=== PATIENT | female | born 1965 | race Caucasian/White ===

== ENCOUNTER 2016-10-22 16:51 | Emergency (ER) | payer BC, OTHER ==
[~2016-10-22] VITALS: Ht 165.1 cm; Wt 89.5 kg
[~2016-10-22 16:51] MED LIST: CETI10TA84 PO; CHOL100010 PO; IBUP-1450 PO; LOSARTAN/HCT PO; LPT10 PO; MULT-506 PO; OMEG10007 PO
[2016-10-22 17:00] VITALS: TEMP 36.7; Ht 165.1 cm; Wt 89.5 kg
[2016-10-22] MEDS ORDERED: ONDANSETRON INJ 2 MG/ML 2 ML VIAL IV STA ×2 (18:53→19:40)
[2016-10-22] MEDS ORDERED: HYDROmorphone INJ 1 MG/ML SYR IV PRN (19:00)
[2016-10-22 19:35] LABS: BASO % 0.3 %; BASO ABS # 0.02 K/uL (0-0.2); COMPLETE YES; HEMATOCRIT 34.7 % (37-47); IG% 0.2 %; LYMPH % 33.2 %; LYMPH ABS # 1.97 K/uL (1.2-3.4); MEAN CELL VOLUME 80.5 fL (80-100); MEAN CORPUSCULAR HEMOGLOBIN 29.2 pg (25-34); MEAN CORPUSCULAR HGB CONC 36.3 g/dl (32-36); MEAN PLATELET VOLUME 9.5 fL (7.4-10.4); MONO % 5.7 %; NEUT % 58.6 %; PLATELET COUNT 248 K/uL (130-400); RED BLOOD COUNT 4.31 M/uL (4.2-5.4); WHITE BLOOD COUNT 5.94 K/uL (4.8-10.8)
[2016-10-22] MEDS ORDERED: CHOL2000 PO (19:43)
--- NOTE | 2016-10-22 19:55 | DIAGNOSTIC IMAGING REPORT ---
CHEST ONE VIEW PORTABLE HISTORY: Atypical CHEST PAIN COMPARISON: None. FINDINGS: The lungs are clear. Cardiac silhouette is normal in size. No pleural effusions. No pneumothorax. IMPRESSION: No acute process. Electronically signed by: Leon Fernandez M.D. 10/22/2016 7:53 PM Dictated Date/Time: 10/22/2016 7:52 PM
[2016-10-22 19:57] LABS: ALT/SGPT 77 U/L (12-78); AST/SGOT 43 U/L (15-37); BLOOD UREA NITROGEN 15 mg/dl (7-18); BUN/CREATININE RATIO 19.6 (10-20); CARBON DIOXIDE 29 mmol/L (21-32); CHLORIDE 104 mmol/L (98-107); CREATININE 0.78 mg/dl (0.60-1.20); GLUCOSE 89 mg/dl (70-99); POTASSIUM 3.2 mmol/L (3.5-5.1); SODIUM 141 mmol/L (136-145)
[2016-10-22 20:00] LABS: ALKALINE PHOSPHATASE 51 U/L (45-117); C-REACTIVE PROTEIN 0.58 mg/dl (0-0.29); CKMB/CK RATIO 1.1 (0-3.0)
[2016-10-22] MEDS ORDERED: METOCLOPRAMIDE HCL INJ 5 MG/ML 2 ML VIAL IV STA (20:06)
[2016-10-22] MEDS ORDERED: DiphenhydrAMINE HCL 50 MG/ML VIAL IV STA (20:06)
[2016-10-22] MEDS ORDERED: OPTIRAY 320 IV PRN (20:15)
[2016-10-22 20:48] VITALS: O2SAT 88
--- NOTE | 2016-10-22 20:57 | DIAGNOSTIC IMAGING REPORT ---
CHEST CTA for AORTIC DISSECTION CT DOSE: 646.56 mGy.cm HISTORY: Back and chest pain. TECHNIQUE: Multiaxial CT images of the chest were performed both before and after the intravenous administration of contrast to evaluate the aorta. Maximal intensity projection images were also obtained. COMPARISON STUDY: Chest CTA 12/07/2012. FINDINGS: Normal caliber thoracic aorta with no evidence for dissection. No pleural or pericardial effusions. Small right pericardial lymph node has slightly increased in size. This measures 7 mm in short axis diameter. Heterogeneous opacification of the liver remains unchanged. Cholecystectomy. The central pulmonary arteries are patent. No mediastinal or hilar lymphadenopathy. The adrenal glands and spleen are unremarkable. No fractures within the visualized osseous structures. No pneumothorax. Mild dependent changes seen within the lungs posteriorly. No focal lung consolidations to suggest pneumonia. IMPRESSION: 1. No evidence for an aortic dissection. 2. Small right pericardial lymph node is slight increase in size. However, this remains subcentimeter in short diameter. 3. No change in the heterogeneous opacification of the liver. Recommend correlation for LFTs to exclude an underlying hepatic pathology. Electronically signed by: Leon Fernandez M.D. 10/22/2016 8:54 PM Dictated Date/Time: 10/22/2016 8:49 PM
[2016-10-22] MEDS ORDERED: ONDANSETRON HOME PACK 4MG OD TAB PO ONE (21:30)
[2016-10-22] MEDS ORDERED: OXYCODONE IR HOME PACK PO ONE (21:30)
[2016-10-22] MEDS ORDERED: OXYC1TAB3 PO (21:31)
[2016-10-22 21:50] VITALS: BP 112/69; PULSE 76; O2SAT 95
--- NOTE | 2016-10-23 00:29 | EMERGENCY ROOM VISIT NOTE ---
History Report prepared by Ladiibe: Lee Ann Lyons Under the Supervision of: Dr. David Phoenix M.D. First contact with patient: 18:36 Chief Complaint: RIB PAIN Stated Complaint: BACK/RIB PAIN History of Present Illness The patient is a 51 year old female who presents to the Emergency Room with complaints of worsening back and rib pain for the past 1 week. She rates her current pain as a 10/10 and states the pain is worse on her left side and radiates to her left breast. She describes her pain as feeling like "a knife stabbing me". She denies any known injury but admits she was lifting heavy boxes at her Mother's house approximately 1 week ago. She notes breathing and laying down worsen her pain and states "I can hardly sleep now". She denies any recent travel or long car rides. The patient also denies LOC, headache, fevers, chills, diaphoresis, visual changes, neck pain, chest pain, breathing difficulties, nausea, vomiting, abdominal pain, melena, hematochezia, urinary symptoms, numbness, weakness, lymphadenopathy, rash, pain or swelling in her legs or other complaints. Source of History: patient Onset: 1 week [employer]IDGE [employer] Position: back Symptom Intensity: 10/10 Quality: stabbing Timing: worsening Modifying Factors (Worsening): breathing, other (laying down) Review of Systems See HPI for pertinent positives and negatives. A total of ten systems were reviewed and were otherwise negative. Past Medical & Surgical Medical Problems: (1) Benign hypertension (2) Bicuspid aortic valve (3) Hyperlipidemia Family History Patient reports no known family medical history. Social History Smoking Status: Never Smoker Alcohol Use: occasionally Drug Use: none Marital Status: Housing Status: lives with family Occupation Status: employed Current/Historical Medications Scheduled Atorvastatin (Atorvastatin Calcium), 10 MG PO Q2D Cetirizine (Zyrtec), 10 MG PO LUNCH Cholecalciferol (Vitamin D3), 1 CAP PO DAILY Fish Oil ([place]-3), 1 CAP PO LUNCH Ibuprofen (Motrin), 600 MG PO Q6H Multivitamin (Multivitamin), 1 TAB PO LUNCH [Losartan/Hct], 1 TAB PO LUNCH Scheduled PRN Oxycodone Ir (Roxicodone Ir), 1-2 TAB PO Q4H PRN for Pain Allergies Coded Allergies: Morphine (Verified Allergy, Unknown, BRADYCARDIA, 10/22/16) Physical Exam Vital Signs Date Time Temp Pulse Resp B/P Pulse Ox O2 Delivery O2 Flow Rate FiO2 10/22/16 21:50 76 16 112/69 95 10/22/16 20:48 88 Nasal Cannula 2.0 10/22/16 19:50 59 16 114/66 98 Room Air 10/22/16 19:44 63 16 95/50 97 Room Air 10/22/16 19:21 99 Room Air 10/22/16 19:20 71 10/22/16 19:16 Room Air 10/22/16 19:09 69 16 133/80 96 Room Air 10/22/16 17:00 36.7 80 18 136/90 97 Room Air Physical Exam GENERAL: Awake, alert, well appearing, no distress HENT: Normocephalic, atraumatic. TM's normal. Oropharynx unremarkable. EYES: PERRL. EOMI. Normal conjunctiva. Sclera non-icteric. NECK: Supple. No nuchal rigidity. FROM. No JVD or bruit. RESPIRATORY: CTA CARDIAC: RRR. No murmur. ABDOMEN: Soft, non distended. No tenderness to palpation. No rebound or guarding. No masses. RECTAL: Deferred. MUSCULOSKELETAL: Unremarkable. No edema. No discoloration. Gross motor strength symmetric. NEURO: Cranial nerves 2-12 grossly intact. Normal sensorium. No sensory or motor deficits noted. Gait normal. Speech normal. No pronator drift. Negative rhomberg. SKIN: No rash or jaundice noted. LYMPH: No adenopathy. Medical Decision & Procedures ER Provider Diagnostic Interpretation: This CT scan was reviewed and interpreted by the radiologist and reviewed by myself. CHEST CTA for AORTIC DISSECTION CT DOSE: 646.56 mGy.cm HISTORY: Back and chest pain. TECHNIQUE: Multiaxial CT images of the chest were performed both before and after the intravenous administration of contrast to evaluate the aorta. Maximal intensity projection images were also obtained. COMPARISON STUDY: Chest CTA 12/07/2012. FINDINGS: Normal caliber thoracic aorta with no evidence for dissection. No pleural or pericardial effusions. Small right pericardial lymph node has slightly increased in size. This measures 7 mm in short axis diameter. Heterogeneous opacification of the liver remains unchanged. Cholecystectomy. The central pulmonary arteries are patent. No mediastinal or hilar lymphadenopathy. The adrenal glands and spleen are unremarkable. No fractures within the visualized osseous structures. No pneumothorax. Mild dependent changes seen within the lungs posteriorly. No focal lung consolidations to suggest pneumonia. IMPRESSION: 1. No evidence for an aortic dissection. 2. Small right pericardial lymph node is slight increase in size. However, this remains subcentimeter in short diameter. 3. No change in the heterogeneous opacification of the liver. Recommend correlation for LFTs to exclude an underlying hepatic pathology. Electronically signed by: Leon Fernandez M.D. 10/22/2016 8:54 PM This X-Ray was reviewed and interpreted by myself and the radiologist. CHEST ONE VIEW PORTABLE HISTORY: Atypical CHEST PAIN COMPARISON: None. FINDINGS: The lungs are clear. Cardiac silhouette is normal in size. No pleural effusions. No pneumothorax. IMPRESSION: No acute process. Electronically signed by: Leon Fernandez M.D. 10/22/2016 7:53 PM Laboratory Results 10/22/16 19:15 Red Blood Count 4.31, Mean Corpuscular Volume 80.5, Mean Corpuscular Hemoglobin 29.2, Mean Corpuscular Hemoglobin Concent 36.3, Mean Platelet Volume 9.5, Neutrophils (%) (Auto) 58.6, Lymphocytes (%) (Auto) 33.2, Monocytes (%) (Auto) 5.7, Eosinophils (%) (Auto) 2.0, Basophils (%) (Auto) 0.3, Neutrophils # (Auto) 3.48, Lymphocytes # (Auto) 1.97, Monocytes # (Auto) 0.34, Eosinophils # (Auto) 0.12, Basophils # (Auto) 0.02 10/22/16 19:15 Test 10/22/16 19:15 10/22/16 19:24 White Blood Count 5.94 K/uL (4.8-10.8) Red Blood Count 4.31 M/uL (4.2-5.4) Hemoglobin 12.6 g/dL (12.0-16.0) Hematocrit 34.7 % (37-47) Mean Corpuscular Volume 80.5 fL (80-100) Mean Corpuscular Hemoglobin 29.2 pg (25-34) Mean Corpuscular Hemoglobin Concent 36.3 g/dl (32-36) Platelet Count 248 K/uL (130-400) Mean Platelet Volume 9.5 fL (7.4-10.4) Neutrophils (%) (Auto) 58.6 % Lymphocytes (%) (Auto) 33.2 % Monocytes (%) (Auto) 5.7 % Eosinophils (%) (Auto) 2.0 % Basophils (%) (Auto) 0.3 % Neutrophils # (Auto) 3.48 K/uL (1.4-6.5) Lymphocytes # (Auto) 1.97 K/uL (1.2-3.4) Monocytes # (Auto) 0.34 K/uL (0.11-0.59) Eosinophils # (Auto) 0.12 K/uL (0-0.5) Basophils # (Auto) 0.02 K/uL (0-0.2) RDW Standard Deviation 37.3 fL (36.4-46.3) RDW Coefficient of Variation 12.7 % (11.5-14.5) Immature Granulocyte % (Auto) 0.2 % Immature Granulocyte # (Auto) 0.01 K/uL (0.00-0.02) Erythrocyte Sedimentation Rate 13 mm/hr (0-21) Anion Gap 8.0 mmol/L (3-11) Est Creatinine Clear Calc Drug Dose 93.2 ml/min Estimated GFR () 101.3 Estimated GFR (Non- 87.4 BUN/Creatinine Ratio 19.6 (10-20) Calcium Level 9.0 mg/dl (8.5-10.1) Total Bilirubin 0.4 mg/dl (0.2-1) Direct Bilirubin 0.1 mg/dl (0-0.2) Aspartate Amino Transf (AST/SGOT) 43 U/L (15-37) Alanine Aminotransferase (ALT/SGPT) 77 U/L (12-78) Alkaline Phosphatase 51 U/L (45-117) Total Creatine Kinase 61 U/L (26-192) Creatine Kinase MB 0.7 ng/ml (0.5-3.6) Creatine Kinase MB Ratio 1.1 (0-3.0) Troponin I < 0.015 ng/ml (0-0.045) C-Reactive Protein 0.58 mg/dl (0-0.29) Total Protein 8.0 gm/dl (6.4-8.2) Albumin 3.7 gm/dl (3.4-5.0) Lipase 262 U/L (73-393) Bedside D-Dimer 249 ng/mlFEU (0-450) Bedside Troponin I 0.000 ng/ml (0-0.045) Laboratory results reviewed by me Medications Administered Medications (Trade) Dose Ordered Sig/Lucille Route Start Time Stop Time Status Last Admin Dose Admin Hydromorphone HCl (Dilaudid Inj) 1 mg Q15M PRN IV 10/22/16 19:00 10/22/16 22:24 DC 10/22/16 19:17 1 MG Ondansetron HCl (Zofran Inj) 4 mg NOW STAT IV 10/22/16 18:53 10/22/16 18:55 DC 10/22/16 19:17 4 MG Ondansetron HCl (Zofran Inj) 4 mg NOW STAT IV 10/22/16 19:40 10/22/16 19:41 DC 10/22/16 19:44 4 MG Metoclopramide HCl (Reglan Inj) 10 mg NOW STAT IV 10/22/16 20:06 10/22/16 20:07 DC 10/22/16 20:12 10 MG Diphenhydramine HCl (Benadryl Inj) 12.5 mg NOW STAT IV 10/22/16 20:06 10/22/16 20:07 DC 10/22/16 20:12 12.5 MG Oxycodone HCl (Roxicodone Immediate Rel 5MG Home Pack) 1 homepack UD ONCE PO 10/22/16 21:30 10/22/16 21:31 DC 10/22/16 21:47 1 HOMEPACK Ondansetron HCl (ZOFRAN ODT 4MG Home Pack) 1 homepack UD ONCE PO 10/22/16 21:30 10/22/16 21:31 DC 10/22/16 21:47 1 HOMEPACK ECG Indication: back/shoulder pain Rate (beats per minute): 73 Rhythm: normal sinus (normal sinus rhythm) Findings: no acute ischemic change, no ectopy ED Course 1850: The patient was evaluated in room B10. A complete history and physical exam was performed. 1852: Zofran 4 mg IV. 0: Dilaudid 1 mg IV. 0: Zofran 4 mg IV. 2006: Benadryl 12.5 mg IV, Reglan 10 mg IV. 2017: I reevaluated the patient. She is feeling well. 2117: I reevaluated the patient. She is feeling much better. I discussed her results and discharge instructions and she verbalized complete understanding and agreement. 2129: Zofran 4 mg 1 homepack PO, Oxycodone HCl 1 homepack PO. Medical Decision Triage Nursing notes reviewed. The patient's presentation and history were concerning for chest and back pain. Etiologies such as cardiac ischemia, aortic dissection, pulmonary embolism, pneumonia, pneumothorax, musculoskeletal, infections, gastrointestinal, as well as others were entertained. The patient was evaluated. She was uncomfortable. She was given Dilaudid and Zofran. She had some nausea and was given additional Zofran and Reglan. She felt better with this. Her pain was minimal. Her ECG was unremarkable. Cardiac markers were negative. CBC and chemistry panel were unremarkable. D- dimer was negative. Because of her history of a congenital bicuspid aortic valve she underwent CT dissection study. This was unremarkable. No other incidental sources of pain were noted. The patient thinks that she may have been doing a lot of lifting and musculoskeletal etiology is possible. I discussed conservative management with the patient. The patient and her felt comfortable. The patient was given a home pack of oxycodone and a small prescription for the same. If she has any issues at all she will come back to the emergency department. Patient will follow-up with her primary physician. By the evaluation outlined above other emergent etiologies such as those listed in the differential, as well as others, were deemed relatively unlikely. The patient was informed about the findings as listed above. All questions were answered and she was pleased with the treatment. Return instructions were outlined and the patient was discharged in stable condition. The patient was referred to her PCP for follow-up for a recheck of the current condition. The chart was completed utilizing [employer] Speech voice recognition software. Grammatical errors, random word insertions, pronoun errors, and incomplete sentences are an occasional consequence of this system due to software limitations, ambient noise, and hardware issues. Any formal questions or concerns about the content, text, or information contained within the body of this dictation should be directly addressed to the physician for clarification. [place] Drug Monitoring Program Search Results: patient reviewed within database, no issues identified Impression Primary Impression: Thoracic back pain Additional Impression: Left sided chest pain Scribe Attestation The scribe's documentation has been prepared under my direction and personally reviewed by me in its entirety. I confirm that the note above accurately reflects all work, treatment, procedures, and medical decision making performed by me. Departure Information Dispostion Home / Self-Care Prescriptions Oxycodone Ir (Roxicodone Ir) 5 Mg Tab 1-2 TAB PO Q4H Y for Pain, #10 TAB Prov: David Phoenix MD 10/22/16 Referrals Chad Donovan M.D. (PCP) Patient Instructions [facility] Additional Instructions BACK PAIN/CHEST PAIN INSTRUCTIONS: DO NOT drive, drink alcohol, operate machinery, or perform dangerous activities today. You were given medications in the ER that can affect your ability to safely function or operate a vehicle. Oxycodone (OxyIR) 5mg: Take 1-2 pills every four hours for breakthrough pain. Avoid alcohol, operating machinery or dangerous equipment, working on ladders or roofs, DRIVING, or situations where being under the influence may be dangerous. It is recommended to use an wvma-rxy-fjhrlin stool softener such as Colace, 100mg twice daily while taking this medication to avoid constipation. Ibuprofen(Motrin, Advil) may be used for fever or pain. Use 600mg every six hours as needed. Take with food. Avoid using more than 2400mg in a 24 hour period. Do not use 2400mg per day for more than three consecutive days without physician direction. Prolonged inappropriate use can lead to stomach upset or ulcers. This medication can be taken if you need to drive, work, or perform activities which may be dangerous when taking narcotic pain medication. (AND/OR) Acetaminophen(Tylenol) may be used for fever or pain. Use 1000mg every six hours as needed. Avoid using more than 4000mg in a 24 hour period. This medication can be taken if you need to drive, work, or perform activities which may be dangerous when taking narcotic pain medication. Zofran 4 mg oral dissolving tablets: take one tablet and allow it to melt in your mouth every 4 hours as needed for nausea. Rest and avoid heavy lifting until your symptoms resolve and then gradually return to full activity. A good rule of thumb is if it hurts your back to perform a certain activity, then it should be avoided until you are healthy again. A heating pad, warm compresses, or a hot shower may help with tight muscles and can be done several times a day as needed. Continue current medications. Return to the ER immediately for any numbness, tingling, severe pain, loss of control of your bowels or bladder, inability to walk, or as needed. Follow up with your primary care physician within 3-4 days for a recheck of your current condition. Problem Qualifiers Primary Impression: Thoracic back pain Chronicity: acute Back pain laterality: left Qualified Codes: M54.6 - Pain in thoracic spine
== END 2016-10-22 21:50 | disposition home or self-care (01) ==
LOC: C.EDB 16:52
DX: M54.6 Pain in thoracic spine (principal); R07.81 Pleurodynia; I10 Essential (primary) hypertension; E78.5 Hyperlipidemia, unspecified; I35.8 Other nonrheumatic aortic valve disorders; Z79.899 Other long term (current) drug therapy; Z88.5 Allergy status to narcotic agent

== ENCOUNTER → 2017-01-21 | Outpatient (CLI) | payer BC ==
[~2017-01-21] MED LIST changes: -CHOL100010 PO; +CHOL2000 PO; +OXYC1TAB3 PO
--- NOTE | 2017-01-21 12:56 | DIAGNOSTIC IMAGING REPORT ---
SOFT TISS HEAD/NECK-THYROID HISTORY:51 yearsFemaleRIGHT SIDED LUMP IN NECK R22.1 COMPARISON: None available. TECHNIQUE: Multiple real-time sonographic images of the right neck within the region of the parotid were obtained assessing grayscale appearance and color flow. FINDINGS: Within the right maxillary region of the parotid there is an ovoid circumscribed lesion which is centrally echogenic suggesting a lymph node with hypoechoic cortex measuring up to 1.0 mm. The overall lesion measures approximately 0.9 x 0.5 x 0.4 cm with vascularity present within the echogenic fatty hilum. Additionally, within the right neck more medially there is an additional reniform-shaped hypoechoic structure which is echogenic centrally measuring 1.4 x 0.7 x 0.6 cm with central flow suggesting additional lymph node. Both of these appear to be within normal limits for size. IMPRESSION: Two lesions of the right neck as described above suggest physiologic lymph nodes. Follow-up exam to exclude progressive abnormality is recommended. The above report was generated using voice recognition software. It may contain grammatical, syntax or spelling errors. Electronically signed by: Ramo Arango 01/21/2017 12:54 PM Dictated Date/Time: 01/21/2017 12:51 PM
== END | disposition home or self-care (01) ==
LOC: C.ULTR 10:53
PROVIDERS: ATTEND Physician Assistant Medical
DX: R22.1 Localized swelling, mass and lump, neck (principal)

== ENCOUNTER → 2017-02-28 | Outpatient (CLI) | payer BC ==
--- NOTE | 2017-02-28 08:07 | DIAGNOSTIC IMAGING REPORT ---
ULTRASOUND SOFT TISSUES RIGHT NECK CLINICAL HISTORY: Follow-up palpable lump. COMPARISON STUDY: Ultrasound of the right neck dated 01/21/2017. FINDINGS: Real-time, grayscale, and color flow sonography of the right parotid gland and the stranding soft tissues is performed at the site of interest. The parotid gland is normal in size and homogeneous in echotexture. A subcentimeter hypoechoic nodule within the parotid gland has decreased in size from previous and likely represents a small intraparotid lymph node. A small lymph node in the surrounding soft tissues has decreased in size from previously now measuring 4 mm in short axis. IMPRESSION: No significant abnormality. Small presumed lymph nodes have decreased in size from previous. Dictated: 02/28/2017 7:33 AM Transcribed: 02/28/2017 8:06 AM Holly Electronically signed by: Slim Mcgraw M.D. 02/28/2017 8:12 AM Dictated Date/Time: 02/28/2017 7:33 AM
== END | disposition home or self-care (01) ==
LOC: C.ULTRBC 07:06
PROVIDERS: ATTEND Internal Medicine Geriatric Medicine
DX: R22.1 Localized swelling, mass and lump, neck (principal)

== ENCOUNTER → 2017-08-08 | Outpatient (CLI) | payer BC ==
[~2017-08-08] MED LIST changes: -OXYC1TAB3 PO
[2017-08-08 14:10] LABS: ALBUMIN 3.6 gm/dl (3.4-5.0); ALT/SGPT 58 U/L (12-78); AST/SGOT 33 U/L (15-37); BLOOD UREA NITROGEN 22 mg/dl (7-18); CALCIUM 8.5 mg/dl (8.5-10.1); CARBON DIOXIDE 30 mmol/L (21-32); CREATININE 0.89 mg/dl (0.60-1.20); GLUCOSE 94 mg/dl (70-99); POTASSIUM 3.6 mmol/L (3.5-5.1); SODIUM 138 mmol/L (136-145)
[2017-08-08 14:21] LABS: ALKALINE PHOSPHATASE 52 U/L (45-117); CHOLESTEROL 127 mg/dl (0-200); LDL CHOLESTEROL CALCULATED 65 mg/dl; TOTAL PROTEIN 8.3 gm/dl (6.4-8.2)
== END | disposition home or self-care (01) ==
LOC: C.LABBC 09:21
PROVIDERS: ATTEND Physician Assistant Medical
DX: R00.2 Palpitations (principal); E78.5 Hyperlipidemia, unspecified; R73.9 Hyperglycemia, unspecified; I10 Essential (primary) hypertension

== ENCOUNTER 2024-11-19 08:40 | Observation (INO) ==
--- NOTE | 2024-11-19 09:03 | Emergency Department Note ---
Impression & Plan Arm numbness, Dizziness, Weakness ED Provider Note NAME: DIVYA WOO AGE: 59 SEX: F : 1965 ARRIVES VIA: Walk-In INFORMANT: Patient ED PROVIDER(S): Cesar Calvillo DO CHIEF COMPLAINT: Right arm numbness HPI: Patient is a 59-year-old female who presents ER for right arm numbness which started around 5 AM when she woke up. She got out of bed and noticed that her whole right arm was numb. This lasted for about 15 minutes. Associated with this she felt weak tired and lightheaded. She notes all of her symptoms lasted for total of 15 minutes with the exception that she feels weak all over now. Denies any headache or change in vision. No chest pain or shortness of breath. No dysuria, urgency, or frequency. No other exacerbating or remitting factors. ADDITIONAL HISTORY OBTAINED: Per HPI Chronic Medical/Social Conditions Affecting Care: Per HPI PAST MEDICAL HISTORY:See Below PAST SURGICAL HISTORY:See Below FAMILY HISTORY:See Below SOCIAL HISTORY:See Below HOME MEDICATIONS:See Below ALLERGIES:See Below VITALS:See Below PHYSICAL EXAMINATION: GENERAL: Sitting up in bed, alert, well appearing, well nourished, no distress, non-toxic EYE EXAM: normal conjunctiva. PERRL and EOM's intact. OROPHARYNX: no exudate, no erythema, lips, buccal mucosa, and tongue normal and mucous membranes are moist NECK: supple, no nuchal rigidity, no adenopathy, non-tender LUNGS: Clear to auscultation. Normal chest wall mechanics HEART: no murmurs, S1 normal and S2 normal ABDOMEN: abdomen soft, non-tender, normo-active bowel sounds, no masses, no rebound or guarding. BACK: Back is symmetrical on inspection and there is no deformity, no midline tenderness, no CVA tenderness. SKIN: no rashes and no bruising UPPER EXTREMITIES: upper extremities are grossly normal. LOWER EXTREMITIES: No pitting edema. NEURO EXAM: Normal sensorium, cranial nerves II-XII intact, normal speech, no weakness of arms, no weakness of legs. No drift. Finger to nose intact. Gross sensation intact. MEDICAL DECISION MAKING: Patient is a 59-year-old female who presents to the ER for the above-stated complaint. IV was established and blood work was obtained. Labs show no significant leukocytosis or anemia. INR unremarkable. BMP with a slightly elevated glucose at 100. LFTs bilirubin and mag was normal. Troponin was negative. CT angio of the head and neck was obtained and showed no acute pathology. Patient has an NIH is 0. Discussed with [place] telestroke neurology who evaluated the patient. They recommended admission for possible TIA. They also recommended Plavix and aspirin. Patient has no deficits at this time and clearly not a TNK candidate. Consults/Care Managements Discussions: Per [facility] Triage Nursing notes reviewed. Limited review of prior medical records performed Vital Signs: reviewed and remarkable for no significant abnormalities Differential diagnosis: Differential Diagnosis includes but is not limited to ischemic Stroke, hemorrhagic stroke, bells palsy, mass, neoplasm, migraine headache, seizure, subarachnoid hemorrhage, TIA, and transient global amnesia. ER treatment provided: See below Diagnostics interpreted by me include EKG and cardiac monitoring as listed below: -Cardiac Monitoring: An order was placed for continuous cardiac monitoring. The monitor shows a rate of 60 with sinus rhythm. -ECG: Sinus rhythm rate of 65 Normal axis No PVCs QTc 447 -Laboratory studies:Interpreted by me as stated above in MDM and shown below. Imaging studies: Xrays: As interpreted by me:none CTs show: CT head per my preliminary interpretation showed no obvious large bleed CT of the head, angios of the head and neck as described above Procedures:none Critical Care: None Past Med/Surg History Problem List (Updated 11/19/24 @ 12:54 by Cesar Calvillo DO) Weakness (Acute) Dizziness (Acute) Arm numbness (Acute) Obesity (BMI 30.0-34.9) Hypertension (Chronic) S/P AVR (aortic valve replacement) Antiplatelet or antithrombotic long-term use Dyslipidemia (Chronic) Hepatic steatosis Ocular migraine Reactive airway disease (Chronic) "Well controlled" No recent inhaler use Medical History (Updated 11/19/24 @ 12:54 by Cesar Calvillo DO) Amaurosis fugax Lung nodule 05/2022 [facility] clinic report, 10/2022 CT no further screening Aortic stenosis Moderate to severe aortic stenosis (JOHN 0.75cm2, MG 36.3mmhg) per 09/10/21 echo- under surveillance by [facility] cardiology Bicuspid aortic valve Surgical History S/P AVR (aortic valve replacement) Nausea and vomiting after administration of anesthetic agent History of esophagogastroduodenoscopy (EGD) H/O colonoscopy 02/2016 repeat 10 years History of cholecystectomy Family History Grandfather (Paternal) Myocardial infarction Father CHF (congestive heart failure) Heart disease Myocardial infarction Hx of CABG Sister Cervical cancer Mother Breast cancer FHx: cholecystectomy PONV (postoperative nausea and vomiting) Grandmother (Maternal) Diabetes Daughter Hypertension Aunt Breast cancer Stroke Uncle Prostate cancer Other Colorectal cancer Ovarian cancer Denies family history of Lung cancer Social History Smoking Status: Never smoker Second Hand Exposure: No; Do You Dip or Chew Tobacco: No; Hx Alcohol Use: No Hx Substance Use: No Preferred Language: Wolof Communication Ability: Effective Visual Impairment: Limited Hearing Ability: Normal Developmental Mathematics Instructor Required: No Beliefs That Will Affect Care: None marital status: Current Living Situation: Spouse current occupational status: employed current occupation: Office work How many Children do You have: 3 Feels Safe at Home: Yes Childhood Exposure to Second-Hand Smoke: Yes Diet: regular caffeine: Yes Dental Care, Regularly: Yes Physical Activity Frequency: Daily Physical Activity Frequency Comment: walking Seatbelt Use: always Sunscreen Use: Yes Do you think of yourself as: straight/heterosexual Assistive Devices: Glasses Allergies Allergies Allergy/AdvReac Type Severity Reaction Status Date / Time morphine AdvReac Intermediate Bradycardia Verified 11/02/24 08:50 simvastatin AdvReac Intermediate Foot aches Verified 11/02/24 08:50 atorvastatin AdvReac Mild Foot aches Verified 11/02/24 08:50 Home Meds Home Medications Medication Instructions Recorded Confirmed cetirizine 10 mg tablet 10 mg PO QAM Allergy Symptoms 04/09/19 11/19/24 multivitamin 1 tab PO QAM 04/01/21 11/19/24 ibuprofen 200 mg tablet 600 mg PO Q6H PRN Pain 06/06/21 11/19/24 cholecalciferol (vitamin D3) 50 5,000 unit PO QPM 09/03/21 11/19/24 mcg (2,000 unit) tablet aspirin 81 mg chewable tablet 81 mg PO DAILY 07/29/22 11/19/24 losartan 100 1 tab PO HS 11/19/24 11/19/24 mg-hydrochlorothiazide 12.5 mg tablet Previous Rx's Medication Instructions Recorded potassium chloride 20 mEq 20 meq PO DAILY #90 tabs 11/07/24 tablet,extended release Results & Data (ED) Vital Signs Vital Signs - 24 hr 11/19/24 08:48 11/19/24 09:00 11/19/24 09:05 Temperature 36.8 C Temperature Source Temporal Artery Scan Pulse Rate 67 63 Pulse Rate from SpO2 Sensor Respiratory Rate 14 Blood Pressure 128/84 141/86 H Blood Pressure Mean 98 103 Pulse Oximetry 98 Oxygen Delivery Method Room Air Sepsis New/Unexplained Change in Mental Status No Sepsis Action Taken by Nursing No Action Required 11/19/24 09:12 11/19/24 09:21 11/19/24 09:30 Temperature Temperature Source Pulse Rate 62 67 Pulse Rate from SpO2 Sensor 61 68 Respiratory Rate 21 18 Blood Pressure 119/82 Blood Pressure Mean 102 Pulse Oximetry 96 95 Oxygen Delivery Method Sepsis New/Unexplained Change in Mental Status Sepsis Action Taken by Nursing 11/19/24 09:36 11/19/24 10:11 11/19/24 10:20 Temperature Temperature Source Pulse Rate 66 55 L 55 L Pulse Rate from SpO2 Sensor 64 55 L 55 L Respiratory Rate 16 13 15 Blood Pressure Blood Pressure Mean Pulse Oximetry 95 97 98 Oxygen Delivery Method Sepsis New/Unexplained Change in Mental Status Sepsis Action Taken by Nursing 11/19/24 10:30 11/19/24 10:39 11/19/24 11:00 Temperature Temperature Source Pulse Rate 60 Pulse Rate from SpO2 Sensor 59 L Respiratory Rate 18 Blood Pressure 131/83 114/74 Blood Pressure Mean 102 95 Pulse Oximetry 97 Oxygen Delivery Method Sepsis New/Unexplained Change in Mental Status Sepsis Action Taken by Nursing 11/19/24 11:00 11/19/24 11:24 11/19/24 11:31 Temperature Temperature Source Pulse Rate 56 L 57 L Pulse Rate from SpO2 Sensor 55 L 57 L Respiratory Rate 13 14 Blood Pressure 133/87 Blood Pressure Mean 93 Pulse Oximetry 97 98 Oxygen Delivery Method Sepsis New/Unexplained Change in Mental Status Sepsis Action Taken by Nursing 11/19/24 11:50 Temperature Temperature Source Pulse Rate 60 Pulse Rate from SpO2 Sensor 60 Respiratory Rate 17 Blood Pressure Blood Pressure Mean Pulse Oximetry 100 Oxygen Delivery Method Sepsis New/Unexplained Change in Mental Status Sepsis Action Taken by Nursing Laboratory Data 11/19/24 09:10 11/19/24 09:10 Lab Results 11/19/24 Range/Units 09:10 WBC 5.25 (4.8-10.8) K/ul RBC 4.59 (4.20-5.40) M/uL Hgb 13.1 (12.0-16.0) g/dl Hct 37.5 (37.0-47.0) % MCV 81.7 (80.0-100.0) fL MCH 28.5 (25.0-34.0) pg MCHC 34.9 (32.0-36.0) g/dL RDW Std Deviation 37.4 (36.4-46.3) fL RDW Coeff of [place]roy 12.6 (11.5-14.5) % Plt Count 221 (130-400) K/uL MPV 10.0 (9.4-12.4) fL Immature Gran % (Auto) 0.4 % Neut % (Auto) 65.7 % Lymph % (Auto) 24.0 % [place] % (Auto) 7.2 % Eos % (Auto) 1.9 % Baso % (Auto) 0.8 % Neut # (Auto) 3.45 (1.40-6.50) K/uL Lymph # (Auto) 1.26 (1.20-3.40) K/uL [place] # (Auto) 0.38 (0.11-0.59) K/uL Eos # (Auto) 0.10 (0.00-0.50) K/uL Baso # (Auto) 0.04 (0.00-0.20) K/uL Immature Gran # (Auto) 0.02 (0.01-0.20) K/uL PT 10.3 (9.0-12.0) Seconds INR 0.9 (0.9-1.1) APTT 23 (21-31) Seconds PTT Ratio 0.9 Sodium 137 (136-145) mmol/L Potassium 3.5 (3.5-5.1) mmol/L Chloride 104 (98-107) mmol/L Carbon Dioxide 29 (21-32) mmol/L Anion Gap 4 (3-11) BUN 17 (6-23) mg/dl Creatinine 0.75 (0.6-1.2) mg/dl Est Cr Clr Drug Dosing 87.6 ml/min eGFR 91.09 BUN/Creatinine Ratio 22.7 H (10-20) Glucose 100 H (70-99(Fasting)) mg/dl Calcium 8.9 (8.6-10.3) mg/dl Magnesium 1.8 (1.7-2.4) mg/dl Total Bilirubin 0.4 (0.2-1.0) mg/dl AST 32 (13-39) U/L ALT 35 (7-52) U/L Alkaline Phosphatase 45 (34-104) U/L Troponin I High Sens < 2.3 (0-14) pg/ml Total Protein 7.6 (6.0-8.3) gm/dl Albumin 4.3 (3.4-5.0) gm/dl Globulin 3.3 (2.5-4.0) gm/dl Albumin/Globulin Ratio 1.3 (0.9-2) Administered Medications Discontinued Medications Aspirin (Aspirin Chew 324 Mg) 324 mg PO NOW STA Stop: 11/19/24 11:39 Last Admin: 11/19/24 11:45 Dose: 324 mg Documented By: JAMEEL Clopidogrel Bisulfate (Clopidogrel Bisulfate 300 Mg Tab) 300 mg PO NOW STA Stop: 11/19/24 11:39 Last Admin: 11/19/24 11:46 Dose: 300 mg Documented By: JAMEEL Ioversol (Optiray 320 125ml) 112 ml IV ONCE ONE Stop: 11/19/24 09:49 Last Admin: 11/19/24 09:48 Dose: 112 ml Documented By: HARLEEN Imaging Data Radiologist's Impression: Head CT 11/19/24 08:59 CT head/brain wo con CLINICAL HISTORY: neuro deficit, acute stroke suspected. TECHNIQUE: Multiple axial CT images of the head were obtained without contrast. A dose lowering technique was utilized adhering to the principles of ALARA. COMPARISON: 08/03/2024 FINDINGS: No intracranial hemorrhage seen. No mass effect, midline shift, or hydrocephalus. Stable mild chronic small vessel ischemic changes. No skull fracture seen. Visualized paranasal sinuses and mastoid air cells are clear. IMPRESSION: No acute findings. ACT 112: Negative or not required by law. The above report was generated using voice recognition software. It may contain grammatical, syntax or spelling errors. Electronically signed by: Pedro Rausch M.D. 11/19/2024 10:08 AM Head CTA 11/19/24 08:59 CTA ANGIOGRAPHY OF THE HEAD CLINICAL HISTORY: neuro deficit, acute stroke suspected. MRI of the brain August 03, 2024. CTA of the head August 13, 2024. COMPARISON STUDY: No previous studies for comparison. TECHNIQUE: Helical axial images of the head were obtained following uneventful intravenous administration of 112 cc of Optiray. Sagittal and coronal reconstructions were viewed as well as maximal intensity projections on an independent 3-D workstation. Automated exposure control was utilized for the study. A dose lowering technique was utilized adhering to the principles of ALARA. CT DOSE: 1111.13 mGy.cm FINDINGS: Please note that the head CT will be reported separately. There is no acute intracranial hemorrhage, midline shift or mass effect. Ventricular system is normal. Basal cisterns are patent. There are no extra-axial collections. The bilateral M1, M2, A1 and A2 segments are patent. There is no intracranial injury. The posterior circulation is intact. No stenosis within the intracranial vessels are present. IMPRESSION: No intracranial vessel occlusion. No intracranial aneurysm. ACT 112: Negative or not required by law. Electronically signed by: Mathieu Gaitan M.D. 11/19/2024 10:36 AM Neck CTA 11/19/24 08:59 CT ANGIOGRAPHY OF THE NECK WITH CONTRAST CLINICAL HISTORY: neuro deficit, acute stroke suspected. Dizziness. Right arm tingling. COMPARISON STUDY: CTA of the neck August 03, 2024. Technique: CT angiography of the carotid and vertebral arteries was obtained using Optiray and 3D reconstruction on an independent workstation. NASCET criteria was utilized. Automated exposure control was utilized for the study. A dose lowering technique was utilized adhering to the principles of ALARA. Findings: Groundglass opacities and interlobular septal thickening are incidentally noted within the lung apices. The bilateral common carotid, cervical internal carotid or vertebral arteries are patent. There is no stenosis, aneurysm or dissection within the neck. There are no cervical spine fractures. There is no cervical lymphadenopathy. IMPRESSION: 1. No stenosis or dissection within the bilateral common carotid, cervical internal carotid or vertebral arteries. 2. Groundglass opacities and interlobular septal thickening within the visualized lung apices. These findings may represent mild pulmonary edema. ACT 112: Negative or not required by law. Electronically signed by: Mathieu Gaitan M.D. 11/19/2024 10:33 AM Discharge Plan Visit Data Chief Complaint: TIA Symptoms Stated Complaint: RT ARM NUMB, LIGHTHEADED, WEAK ED Provider: Cesar Calvillo Discharge Problem: Arm numbness, Dizziness, Weakness Patient Disposition: Admitted As Inpatient Condition: Fair Forms Stand Alone Forms: My [facility] Prescriptions Prescriptions: No Action potassium chloride 20 mEq tablet extended release 20 meq PO DAILY Qty: 90 3RF aspirin 81 mg tablet,chewable 81 mg PO DAILY cetirizine 10 mg tablet 10 mg PO QAM cholecalciferol (vitamin D3) 50 mcg (2,000 unit) tablet 5,000 unit PO QPM multivitamin Tablet 1 tab PO QAM ibuprofen 200 mg Tablet 600 mg PO Q6H PRN (Reason: Pain) losartan-hydrochlorothiazide 100-12.5 mg tablet 1 tab PO HS Referrals Referrals: Sina Lopes DO [Primary Care Provider] -
[2024-11-19 09:36] LABS: Basophils # (auto) 0.04 K/uL (0.00-0.20); Basophils % (auto) 0.8 %; Eosinophils % (auto) 1.9 %; Hematocrit (blood only) 37.5 % (37.0-47.0); Hemoglobin 13.1 g/dl (12.0-16.0); Immature Granulocytes # (auto) 0.02 K/uL (0.01-0.20); Immature Granulocytes % (auto) 0.4 %; Lymphocytes # (auto) 1.26 K/uL (1.20-3.40); Mean Corpuscular Hemoglobin 28.5 pg (25.0-34.0); Mean Corpuscular Hgb Conc 34.9 g/dL (32.0-36.0); Mean Corpuscular Volume 81.7 fL (80.0-100.0); Monocytes # (auto) 0.38 K/uL (0.11-0.59); Monocytes % (auto) 7.2 %; Neutrophils # (auto) 3.45 K/uL (1.40-6.50); Neutrophils % (auto) 65.7 %; Platelet Count 221 K/uL (130-400); RDW Coefficient of Variation 12.6 % (11.5-14.5); RDW Standard Deviation 37.4 fL (36.4-46.3); Red Blood Count 4.59 M/uL (4.20-5.40); White Blood Count 5.25 K/ul (4.8-10.8)
[2024-11-19] MEDS: OPTIRAY 320 125ml IV ONE (09:48)
[2024-11-19 09:59] LABS: Alanine Aminotransferase 35 U/L (7-52); Albumin Globulin Ratio 1.3 (0.9-2); Albumin Level 4.3 gm/dl (3.4-5.0); Alkaline Phosphatase 45 U/L (34-104); Anion Gap 4 (3-11); Aspartate Aminotransferase 32 U/L (13-39); BUN Creatinine Ratio 22.7 (10-20); Bilirubin,Total 0.4 mg/dl (0.2-1.0); Blood Urea Nitrogen 17 mg/dl (6-23); Calcium 8.9 mg/dl (8.6-10.3); Carbon Dioxide 29 mmol/L (21-32); Chloride 104 mmol/L (98-107); Creatinine Clr Calc Pharmacy 87.6 ml/min; Globulin 3.3 gm/dl (2.5-4.0); Glucose 100 mg/dl (70-99(Fasting)); Magnesium 1.8 mg/dl (1.7-2.4); Potassium 3.5 mmol/L (3.5-5.1); Sodium 137 mmol/L (136-145); Total Protein 7.6 gm/dl (6.0-8.3)
[2024-11-19 10:05] LABS: Troponin I High Sensitivity < 2.3 pg/ml (0-14)
--- NOTE | 2024-11-19 10:09 | CT Scan Report ---
CT head/brain wo con CLINICAL HISTORY: neuro deficit, acute stroke suspected. TECHNIQUE: Multiple axial CT images of the head were obtained without contrast. A dose lowering tech nique was utilized adhering to the principles of ALARA. COMPARISON: 08/03/2024 FINDINGS: No intracranial hemorrhage seen. No mass effect, midline shift, or hydrocephalus. Stable mi ld chronic small vessel ischemic changes. No skull fracture seen. Visualized paranasal sinuses and ma stoid air cells are clear. IMPRESSION: No acute findings. ACT 112: Negative or not required by law. The above report was generated using voice recognition software. It may contain grammatical, syntax o r spelling errors. Electronically signed by: Pedro Rausch M.D. 11/19/2024 10:08 AM
[2024-11-19 10:27] LABS: INR 0.9 (0.9-1.1); Partial Thromboplastin Ratio 0.9; Partial Thromboplastin Time 23 Seconds (21-31); Prothrombin Time 10.3 Seconds (9.0-12.0)
--- NOTE | 2024-11-19 10:34 | CT Scan Report ---
CT ANGIOGRAPHY OF THE NECK WITH CONTRAST CLINICAL HISTORY: neuro deficit, acute stroke suspected. Dizziness. Right arm tingling. COMPARISON STUDY: CTA of the neck August 03, 2024. Technique: CT angiography of the carotid and vertebral arteries was obtained using Optiray and 3D rec onstruction on an independent workstation. NASCET criteria was utilized. Automated exposure control was utilized for the study. A dose lowering technique was utilized adhering to the principles of ALA RA. Findings: Groundglass opacities and interlobular septal thickening are incidentally noted within the lung apices. The bilateral common carotid, cervical internal carotid or vertebral arteries are patent . There is no stenosis, aneurysm or dissection within the neck. There are no cervical spine fractures . There is no cervical lymphadenopathy. IMPRESSION: 1. No stenosis or dissection within the bilateral common carotid, cervical internal carotid or verteb ral arteries. 2. Groundglass opacities and interlobular septal thickening within the visualized lung apices. These findings may represent mild pulmonary edema. ACT 112: Negative or not required by law. Electronically signed by: Mathieu Gaitan M.D. 11/19/2024 10:33 AM
--- NOTE | 2024-11-19 10:38 | CT Scan Report ---
CTA ANGIOGRAPHY OF THE HEAD CLINICAL HISTORY: neuro deficit, acute stroke suspected. MRI of the brain August 03, 2024. CTA of th e head August 13, 2024. COMPARISON STUDY: No previous studies for comparison. TECHNIQUE: Helical axial images of the head were obtained following uneventful intravenous administr ation of 112 cc of Optiray. Sagittal and coronal reconstructions were viewed as well as maximal inten sity projections on an independent 3-D workstation. Automated exposure control was utilized for the study. A dose lowering technique was utilized adhering to the principles of ALARA. CT DOSE: 1111.13 mGy.cm FINDINGS: Please note that the head CT will be reported separately. There is no acute intracranial he morrhage, midline shift or mass effect. Ventricular system is normal. Basal cisterns are patent. Ther e are no extra-axial collections. The bilateral M1, M2, A1 and A2 segments are patent. There is no in tracranial injury. The posterior circulation is intact. No stenosis within the intracranial vessels a re present. IMPRESSION: No intracranial vessel occlusion. No intracranial aneurysm. ACT 112: Negative or not required by law. Electronically signed by: Mathieu Gaitan M.D. 11/19/2024 10:36 AM
[2024-11-19] MEDS: ASPIRIN CHEW 324 MG PO STA (11:45)
[2024-11-19] MEDS: CLOPIDOGREL BISULFATE 300 MG TAB PO STA (11:46)
[2024-11-19] MEDS ORDERED: MELATONIN 3 MG TAB PO PRN (13:20)
[2024-11-19] MEDS ORDERED: ACETAMINOPHEN 325 MG TAB PO PRN (13:20)
[2024-11-19] MEDS ORDERED: POLYETHYLENE (MIRALAX) 17 GM PACK PO PRN (13:20)
--- NOTE | 2024-11-19 13:21 | History & Physical Report ---
Date of Service November 19, 2024 Assessment & Plan (1) Dizziness: (2) Arm numbness: (3) Lightheadedness: Plan #Dizziness/Lightheadedness: - currently asymptomatic - most likely vasovagal episode given associated low heart rate, and transient nature of symptoms - BP WNL 135/80 - electrolytes WNL - NIH stroke scale 0 #Right arm numbness: - resolved after 15-20 minutes - no associated facial numbness, no arm weakness - CT brain showed no acute infarct - head and neck CTA WNL - no history of dyslipidemia or DM #S/p aortic valve replacement: - follows regularly with [facility] cardiology - on a daily baby aspirin #Ocular migraines: - has visual disturbances lasting 30-60 seconds on occasion - scheduled appointment with Dr. Del Toro in February #Hypertension: - losartan/hydrochlorothiazide held this morning Plan: - admit to med/tele to observe overnight and for TIA rule out - echo ordered - brain MRI ordered - plan to d/c tomorrow morning pending negative workup History of Present Illness Chief Complaint: right arm numbness and dizziness/lightheadedness Primary Care Provider: DO Michelle Gregory is a 59-year-old female who presented this morning after an episode of right arm numbness accompanied by dizziness and lightheadedness when she woke up this morning at 5am. She reports that she felt numb from her shoulder down to her hand, no neck pain. No weakness of the right arm. She felt like she would pass out upon walking. She felt hot and clammy and had to lay down on the floor. Her left arm then also began feeling numb. The episode lasted about 15-20 minutes and then resolved. She has no history of stroke or TIA. She says she has never had similar symptoms in the past. She does report that her smart watch said her heart rate was in the 40s during this episode. No fever, chills, muscle aches, joint pains, sore throat, headaches, or vision changes associated with this episode. No recent illness, no sick contacts. She did move leaves on Tuesday and noted a few bug bites on her upper back, no known tick bites. She does endorse a history of ocular migraines for which she has an appointment with neurology scheduled in February. History of aortic valve replacement at [facility] for an asymptomatic bicuspid aortic valve. Follows with cardiology there with her next appointment scheduled in 2 weeks. Allergies Allergy/AdvReac Type Severity Reaction Status Date / Time morphine AdvReac Intermediate Bradycardia Verified 11/02/24 08:50 simvastatin AdvReac Intermediate Foot aches Verified 11/02/24 08:50 atorvastatin AdvReac Mild Foot aches Verified 11/02/24 08:50 Home Medications Medication Instructions Recorded Confirmed Type cetirizine 10 mg tablet 10 mg PO QAM Allergy Symptoms 04/09/19 11/19/24 History multivitamin 1 tab PO QAM 04/01/21 11/19/24 History ibuprofen 200 mg tablet 600 mg PO Q6H PRN Pain 06/06/21 11/19/24 History cholecalciferol (vitamin D3) 50 5,000 unit PO QPM 09/03/21 11/19/24 History mcg (2,000 unit) tablet aspirin 81 mg chewable tablet 81 mg PO DAILY 07/29/22 11/19/24 History potassium chloride 20 mEq 20 meq PO DAILY #90 tabs 11/07/24 11/19/24 Rx tablet,extended release losartan 100 1 tab PO HS 11/19/24 11/19/24 History mg-hydrochlorothiazide 12.5 mg tablet Past Med/Surg History Problem List (Updated 11/19/24 @ 13:23 by Kristy Garcia) Lightheadedness (Acute) Weakness (Acute) Dizziness (Acute) Arm numbness (Acute) Obesity (BMI 30.0-34.9) Hypertension (Chronic) S/P AVR (aortic valve replacement) Antiplatelet or antithrombotic long-term use Dyslipidemia (Chronic) Hepatic steatosis Ocular migraine Reactive airway disease (Chronic) "Well controlled" No recent inhaler use Medical History (Updated 11/19/24 @ 13:23 by Kristy Garcia) Amaurosis fugax Lung nodule 05/2022 [facility] clinic report, 10/2022 CT no further screening Aortic stenosis Moderate to severe aortic stenosis (JOHN 0.75cm2, MG 36.3mmhg) per 09/10/21 echo- under surveillance by [facility] cardiology Bicuspid aortic valve Surgical History S/P AVR (aortic valve replacement) Nausea and vomiting after administration of anesthetic agent History of esophagogastroduodenoscopy (EGD) H/O colonoscopy 02/2016 repeat 10 years History of cholecystectomy Family History Grandfather (Paternal) Myocardial infarction Father CHF (congestive heart failure) Heart disease Myocardial infarction Hx of CABG Sister Cervical cancer Mother Breast cancer FHx: cholecystectomy PONV (postoperative nausea and vomiting) Grandmother (Maternal) Diabetes Daughter Hypertension Aunt Breast cancer Stroke Uncle Prostate cancer Other Colorectal cancer Ovarian cancer Denies family history of Lung cancer Social History Smoking Status: Never smoker Second Hand Exposure: Yes; Do You Dip or Chew Tobacco: No; Hx Alcohol Use: No Hx Substance Use: No Preferred Language: Japanese Communication Ability: Effective Visual Impairment: Limited Hearing Ability: Normal Education Administrative Assistant Required: No Beliefs That Will Affect Care: None marital status: Current Living Situation: Spouse current occupational status: employed current occupation: Office work How many Children do You have: 3 Feels Safe at Home: Yes Childhood Exposure to Second-Hand Smoke: Yes Diet: regular caffeine: Yes Dental Care, Regularly: Yes Physical Activity Frequency: Daily Physical Activity Frequency Comment: walking Seatbelt Use: always Sunscreen Use: Yes Do you think of yourself as: straight/heterosexual Assistive Devices: None Review of Systems Review of Systems: As per HPI. Physical Exam Physical Exam: GENERAL: A&Ox3. No acute distress. Appears stated age. Affect and speech appropriate. HEENT: PERRLA, EOMI, conjunctiva clear. NECK: Supple, No lymphadenopathy. HEART: RRR, normal S1, loud S2. No murmurs, gallops or clicks. LUNGS: Breathing not labored, breathing sounds clear bilaterally, no rales, rhonchi or wheezing. ABDOMEN: Positive bowel sounds, soft, nontender, non-distended. No hepatosplenomegaly noted. No masses. EXTREMITIES: No edema, clubbing or cyanosis. No joint swelling or tenderness on hands. SKIN: Approximately five raised, erythematous papules less than 5mm in diameter on the upper back and back of the neck. Results & Data Results & Data Vital Signs (Past 12 Hours) Vital Signs Temp Pulse Resp BP Pulse Ox O2 Del Method 11/19/24 13:09 62 11/19/24 13:02 60 16 97 11/19/24 13:00 135/80 11/19/24 12:53 57 L 27 H 99 11/19/24 12:35 59 L 10 L 97 11/19/24 12:02 58 L 21 98 11/19/24 12:01 146/89 H 11/19/24 11:56 60 16 100 11/19/24 11:50 60 17 100 11/19/24 11:31 133/87 11/19/24 11:24 57 L 14 98 11/19/24 11:00 56 L 13 97 11/19/24 11:00 114/74 11/19/24 10:39 60 18 97 11/19/24 10:30 131/83 11/19/24 10:20 55 L 15 98 11/19/24 10:11 55 L 13 97 11/19/24 09:36 66 16 95 11/19/24 09:30 119/82 11/19/24 09:21 67 18 95 11/19/24 09:12 62 21 96 11/19/24 09:05 63 11/19/24 09:00 141/86 H 11/19/24 08:48 36.8 C 67 14 128/84 98 Room Air Supervising Physician Co-Signing Physician Notes I personally examined the patient and verified all clancy points of history and exam, discussed case, and agree with decision making with Dr Lee and Keo Garcia MS2 woke up with numb right arm, no facial numbness. Got up to go to the bathroom and then felt lightheaded faint like she was going to pass out dizzy sweaty and hot. She felt the need to sit on the floor, that did not help enough and then she laid down. When she was laying down her left arm went numb as well. Other than feeling fatigued she now feels back to her usual state of health. Vitals noted, in general she is awake and alert pleasant no distress. HEENT normocephalic atraumatic mucous membranes moist. Breathing unlabored no accessory muscle use good effort. Skin without rashes pallor or icterus. Neuro without focal deficits. Labs and diagnostics noted. Exam otherwise as above. Arm numbness as well as lightheadednessstrongly suspect the 2 are unrelated, her lightheadedness/sweats/hot/nausea fits extremely well with a vasovagal event, the right arm numbness does not seem to relate to this, I do wonder if it is as simple as a transient compression neuropathy from having slept on it given that it has not happened before and did not happen againcerebrovascular ischemia is hard to rule out although as I discussed with the patient seems far less likely given that she had no facial symptoms as well. That said, given that she does have moderate risk for vascular disease (mostly due to her longstanding hypertension) it is not irrational to look at a TIA as a diagnosis of exclusion. CT angios were clear, lipids and A1c were quite reasonable recently (especially given that I doubt that this was a vascular event), check echo check brain MRI. Consider dual antiplatelet therapy, but also again this seems more likely to be a noncerebrovascular cause. DVT proph - ambulation Resident Supervision Co-Signing Physician Notes I independently saw Miss Sorto and did physical exam myself and agree with decision making of Lara Garcia MS2. Endorses arm numbness right in the beginning f/b left later, along with dizziness and lightheadedness this morning, all of sudden when she woke up. Lasted for 15-20 minute. Watch showing her HR at 40s during this episodes. No weakness, no blurring of vision, no facial numbness, no tinnitus, no pain anywhere. Constantly feeling weak and exhausted after this incidence. no h/o Stroke, TIA, weakness in past. Endorsed h/o ocular migraine in past, f/u with neurology in February, f.u with [facility] in 2 weeks O/E: GC: looks hydrated, little anxious CVS: S1, S2, loud S2, fine systolic murmur. Lungs: BL CTABS, clear. Abdomen: Soft . NT Skin : Non specific rash in on posterior neck. A and P # Dizziness and Lightheadedness *likely Vasovagal Sx. - Less likely for TIA, ABCD score 1 even if. - Will observe on M/S tele - Imaging including CT angio H/N, CT head, MRI unremarkable. - Stroke scale QS. - Reassess AM. #Arm numbness. - Possibility of sleeping in arms. - A/w anxiety, suspect hyperventilation causing progression in left arm - Electrolytes WNL. - Will reassess. Code: Full Dispo: Med/ Surg Tele Possible home tomorrow.
--- NOTE | 2024-11-19 14:22 | Billing Data ---
Date of Service November 19, 2024 Coding Level of Care Code 13555 INT INP/OBS CARE
[2024-11-19] MEDS ORDERED: IBUPROFEN 600 MG TAB PO PRN (15:33)
[2024-11-19 15:35] VITALS: RESP 18
--- NOTE | 2024-11-19 15:59 | XCELERA ---
[id number]
--- NOTE | 2024-11-19 17:36 | Magnetic Resonance Report ---
EXAM: MR brain wo con CLINICAL HISTORY: Possible TIA TECHNIQUE: Different pulse sequences were performed in different planes without GD-DTPA injection for the brain. Images were sent through PACs for interpretation. COMPARISON: 08/03/2024 FINDINGS: Brain Parenchyma: No evidence of acute infarction or hemorrhage. A few foci of an altered signal are seen involving the bilateral fronto-parietal subcortical white matter, eliciting high T2/FLAIR signal intensities, while inconspicuous on T1 WIS, no perifocal edema or mass effect. no corresponding diffusion restriction with isointense and high ADC denoting chronicity. Bilateral deep white matter periventricular sheets of bright T2 and FLAIR signal denote small arterial disease(Fazekas 1). A right parietal periventricular focus blooming on SWI, denoting microbleeds. Normal corona-white matter differentiation. No mass lesions or focal cortical abnormalities were identified. Ventricles and Sulci: Accentuated cortical sulci, Sylvian fissures, and extra-axial CSF spaces are associated with mild symmetrical dilatation of the supra-tentorial ventricular system. Posterior Fossa: Cerebellum and brainstem appear normal without evidence of mass lesions or signal abnormalities. Orbits and Skull Base: Orbits and skull base structures are normal without evidence of abnormalities. Bilateral hypertrophied nasal turbinates. Mild nasal septal deviation. IMPRESSION: 1. No hyperacute or acute infarctions could be depicted. 2. Chronic microvascular ischemic angiopathy. 3. Age-related brain involuational changes. 4. No significant interval changes. Electronically signed by Feliberto Kendall 11-19-2024 5:32 PM
[2024-11-19] MEDS: CHOLECALCIFEROL 125 MCG (5,000 UNITS) TAB PO SCH (21:22)
[2024-11-19] MEDS: hydroCHLOROthiazide 25 MG TAB PO SCH (21:22)
[2024-11-19] MEDS: LOSARTAN POTASSIUM 50 MG TAB PO SCH (21:23)
--- NOTE | 2024-11-20 04:49 | Electrocardiogram Report ---
Test Reason : Blood Pressure : */* mmHG Vent. Rate : 65 BPM Atrial Rate : 65 BPM P-R Int : 138 ms QRS Dur : 82 ms QT Int : 430 ms P-R-T Axes : 47 34 53 degrees QTcB Int : 447 ms Normal sinus rhythm Cannot rule out Anterior infarct , age undetermined Abnormal ECG When compared with ECG of 03-Aug-2024 10:15, Anterior infarct is now Present Confirmed by Arnie Valenzuela ([id number]) on 11/20/2024 4:49:29 AM Referred By: REFERRED SELF Confirmed By: Arnie Valenzuela
[2024-11-20 07:15] LABS: Basophils # (auto) 0.04 K/uL (0.00-0.20); Basophils % (auto) 0.8 %; Eosinophils # (auto) 0.15 K/uL (0.00-0.50); Eosinophils % (auto) 3.1 %; Hematocrit (blood only) 36.7 % (37.0-47.0); Hemoglobin 13.1 g/dl (12.0-16.0); Immature Granulocytes # (auto) 0.01 K/uL (0.01-0.20); Immature Granulocytes % (auto) 0.2 %; Lymphocytes # (auto) 1.34 K/uL (1.20-3.40); Lymphocytes % (auto) 27.7 %; Mean Corpuscular Hemoglobin 29.2 pg (25.0-34.0); Mean Corpuscular Hgb Conc 35.7 g/dL (32.0-36.0); Mean Corpuscular Volume 81.9 fL (80.0-100.0); Monocytes # (auto) 0.37 K/uL (0.11-0.59); Monocytes % (auto) 7.7 %; Neutrophils # (auto) 2.92 K/uL (1.40-6.50); Neutrophils % (auto) 60.5 %; Platelet Count 213 K/uL (130-400); RDW Coefficient of Variation 12.4 % (11.5-14.5); RDW Standard Deviation 37.6 fL (36.4-46.3); Red Blood Count 4.48 M/uL (4.20-5.40); White Blood Count 4.83 K/ul (4.8-10.8)
[2024-11-20 07:40] LABS: Anion Gap 3 (3-11); Carbon Dioxide 30 mmol/L (21-32); Chloride 104 mmol/L (98-107); Magnesium 1.9 mg/dl (1.7-2.4); Sodium 137 mmol/L (136-145)
[2024-11-20 07:43] LABS: Blood Urea Nitrogen 16 mg/dl (6-23); Creatinine Clr Calc Pharmacy 89.7 ml/min; Glucose Fasting 96 mg/dl (70-99)
[2024-11-20 07:44] VITALS: BP 114/78; PULSE 70; TEMP 97.9; O2SAT 94
[2024-11-20 07:57] LABS: Thyroid Stimulating Hormone 2.407 uIu/ml (0.300-4.500)
[2024-11-20] MEDS: MULTIVITAMIN TAB PO SCH (08:34)
[2024-11-20] MEDS: CLOPIDOGREL BISULFATE 75 MG TAB PO SCH (08:34)
[2024-11-20] MEDS: CETIRIZINE HCL 10 MG TABLET PO SCH (08:34)
[2024-11-20] MEDS: POTASSIUM CHLORIDE CRTAB 20 MEQ TABCR PO SCH (08:36)
[2024-11-20] MEDS: ASPIRIN 81 MG CHEW PO SCH (08:36)
--- NOTE | 2024-11-20 11:02 | Discharge Summary ---
Date of Service November 20, 2024 Admission HPI Per Admitting Provider Michelle is a 59-year-old female who presented on 11/19 after an episode of right arm numbness accompanied by dizziness and lightheadedness when she woke up at 5am. She reports that she felt numb from her shoulder down to her hand, no neck pain. No weakness of the right arm. She felt like she would pass out upon walking. She felt hot and clammy and had to lay down on the floor. Her left arm then also began feeling numb. The episode lasted about 15-20 minutes and then resolved. She has no history of stroke or TIA. She says she has never had similar symptoms in the past. She does report that her smart watch said her heart rate was in the 40s during this episode. No fever, chills, muscle aches, joint pains, sore throat, headaches, or vision changes associated with this episode. No recent illness, no sick contacts. She did move leaves on Tuesday and noted a few bug bites on her upper back, no known tick bites. She does endorse a history of ocular migraines for which she has an appointment with neurology scheduled in February. History of aortic valve replacement at [facility] for an asymptomatic bicuspid aortic valve. Follows with cardiology there with her next appointment scheduled in 2 weeks. Admission Exam (Per Admitting) Constitutional GENERAL: A&Ox3. No acute distress. Appears stated age. Affect and speech appropriate. HEENT: PERRLA, EOMI, conjunctiva clear. NECK: Supple, No lymphadenopathy. HEART: RRR, normal S1, loud S2. No murmurs, gallops or clicks. LUNGS: Breathing not labored, breathing sounds clear bilaterally, no rales, rhonchi or wheezing. ABDOMEN: Positive bowel sounds, soft, nontender, non-distended. No hepatosplenomegaly noted. No masses. EXTREMITIES: No edema, clubbing or cyanosis. No joint swelling or tenderness on hands. SKIN: Approximately five raised, erythematous papules less than 5mm in diameter on the upper back and back of the neck. Discharge Data Consultations 11/19/24 11:38 ED Decision to Admit Stat Hospital Course (1) Dizziness: (2) Arm numbness: (3) Lightheadedness: Plan Hospital Course: Michelle presented to the ED on the morning of 11/19 after waking up with 15-20 minutes of right arm numbness and dizziness/lightheadedness. Upon presentation to the ED, symptoms had resolved but patient felt persistent fatigue. Head CT in the ED was unremarkable for acute infarct, head and neck CTA showed no blockage. [place] [facility] was consulted who recommended workup for TIA. Patient was admitted. Brain MRI showed only age-related changes. Echocardiogram did not show any concern for clot formation. By the morning of 11/20, all symptoms had resolved. Follow up with PCP within the next week for hospital follow up. #Dizziness/Lightheadedness: - resolved - most likely vasovagal episode given associated low heart rate, and transient nature of symptoms - BP WNL 135/80 - electrolytes WNL - NIH stroke scale 0 #Right arm numbness: * TIA vs hyperventillation - resolved after 15-20 minutes - no associated facial numbness, no arm weakness - no history of dyslipidemia or DM - CT brain showed no acute infarct - head and neck CTA WNL - brain MRI showed no acute infarct - Even if TIA, ABCS score 1 hence she will have very minimal r/o developing stroke in next 2 days. - Will continue aspirin and clopidogrel for 3 weeks to be on safer side. Patient well instructed about keeping eye on her sx #S/p aortic valve replacement: - follows regularly with [facility] cardiology - echo 11/19 showed bioprosthetic aortic valve, EF 60-65%, no concerning findings - on a daily baby aspirin #Ocular migraines: - has visual disturbances lasting 30-60 seconds on occasion - scheduled appointment with Dr. Del Toro in February - Adding Verapamil 40 mg PO HS for 30 days. Continue until Neurology appointment. #Hypertension: Continue home med Plan: - follow up with PCP in the next week Supervising Physician Co-Signing Physician Notes I independently saw patient at time of discharge and agree with above DC plan per Kristy. Agree her symptoms have resolved and complete work up is pretty unremarkable. Has f.u appointment with cardiology and neurology. Would recommend continuing enough hydration, verapamil 40 mg PO HS, and Aspirin+ clopidogrel for 3 weeks. Additional plans in Kristy's documentation is added as above and underlined. Please refer to DC instructions for further detail. Resident Supervision Co-Signing Physician Notes I personally examined the patient and verified all clancy points of history and exam, discussed case, and agree with decision making with Dr Lee and Keo Garcia MS2 Feeling better. Feels up to going home. Does wonder about ongoing management for ocular migraines. Vitals noted, in general she is awake and alert pleasant no distress. HEENT normocephalic atraumatic mucous membranes moist. Breathing unlabored no accessory muscle use good effort. Skin without rashes pallor or icterus. Normal gait vagal episode with arm numbnessTIA workup overall reassuring. Was open and neel in discussion with patient and that it is essentially impossible to totally disapprove a TIA, but given that it was arm numbness without face, and given that the dizziness was extremely consistent with a vagal event, and she does not show any overt ischemic findings, fairly unlikely to have been cerebrovascular ischemia. More than likely the arm numbness was nonspecific (given that she woke up with it a compression neuropathy that got better would be most likely) and her dizziness/sweats/feeling hot all was extremely consistent with a vagal episode. Discharge home, close PCP follow-up. Ocular migrainesshe asked about ongoing management for tamela is to see neurology in February. Asked if we could get this moved up if at all possible; also after discussion of risk/benefit we will give trial to low-dose of verapamil at bedtime. If tolerated, can titrate up if needed. Discussed anticonvulsant type medicines (such as topiramate) as an alternative strategy if she has intolerable lightheadedness/dizziness on the verapamil. Discussed watching for side effects, how to manage them, etc. replaced aortic valveecho reassuring. Asked for records to be sent to [facility]. Safe/stable for home. Otherwise as above.
--- NOTE | 2024-11-20 12:57 | Billing Data ---
Date of Service November 20, 2024 Coding Level of Care Code 34551 IN/OBS DISCH 30 MIN/LESS
== END 2024-11-20 11:46 | disposition home or self-care (01) ==
LOC: ED 08:40 → 2N 08:40
DX: Z88.8 Allergy status to other drugs, medicaments and biological substances; R53.1 Weakness; G43.909 Migraine, unspecified, not intractable, without status migrainosus; I10 Essential (primary) hypertension; Z88.5 Allergy status to narcotic agent; R42 Dizziness and giddiness; Z79.82 Long term (current) use of aspirin; R20.0 Anesthesia of skin; Z79.899 Other long term (current) drug therapy; Z95.2 Presence of prosthetic heart valve